=== PATIENT | female | born 1990 | race Caucasian/White ===

== ENCOUNTER 2017-06-15 05:46 | Emergency (ER) | payer SELFPAY ==
[~2017-06-15] VITALS: Ht 160 cm; Wt 115.2 kg
--- NOTE | 2017-06-15 06:34 | PHYS DOC ---
Past Medical History Past Medical History: No Pertinent History Past Medical History Past Surgical History: No Surgical History Alcohol Use: None Drug Use: None Adult General Chief Complaint Chief Complaint: ABDOMINAL PAIN IN HPI HPI Patient is a 27 year old female with /vaginal bleeding. This is a 27-year-old female with LMP between March and April presents with vaginal bleeding. She has had positive test at home. She's been having some cramping, last ast night. This morning she woke and had a small amount of bright red blood coming out of her vagina. She's not having the pain right now. She did have a stillbirth previously. No recent sexual activity. No pain currently. No active bleeding currently she says. She's not having current pain. She is not seen [facility] [employer] for this . She has had multiple positive tests at home. Review of Systems Review of Systems Constitutional: Denies fever or chills Eyes: Denies change in visual acuity, redness, or eye pain HENT: Denies nasal congestion or sore throat Respiratory: Denies cough or shortness of breath Cardiovascular: No additional information not addressed in HPI GI: Denies abdominal pain, nausea, vomiting, bloody stools or diarrhea : Denies dysuria or hematuria Musculoskeletal: Denies back pain or joint pain Integument: Denies rash or skin lesions Neurologic: Denies headache, focal weakness or sensory changes Endocrine: Denies polyuria or polydipsia All other systems were reviewed and found to be within normal limits, except as documented in this note. Allergies Allergies Allergies Coded Allergies Type Severity Reaction Last Updated Verified No Known Drug Allergies 06/15/17 No Physical Exam Physical Exam Constitutional: Well developed, well nourished, no acute distress, non-toxic appearance. HENT: Normocephalic, atraumatic, Eyes: conjunctiva normal Neck: Normal range of motion Cardiovascular:Heart rate regular rhythm, no murmur Lungs & Thorax: Bilateral breath sounds clear to auscultation Abdomen: Bowel sounds normal, soft, no tenderness, no masses, no pulsatile masses. PELVIC: scant amount of blood in the vaginal vault, os is minimally open. No active vaginal bleeding. No POC. No adnexal tenderness. Skin: Warm, dry, no erythema, no rash. Back: No tenderness, no CVA tenderness. Extremities: No tenderness, no cyanosis, no clubbing, ROM intact, no edema. Neurologic: Alert and oriented X 3, normal motor function, normal sensory function, no focal deficits noted. Psychologic: Affect normal, judgement normal, mood normal. Current Patient Data Vital Signs Vital Signs Date Time Temp Pulse Resp B/P (MAP) Pulse Ox O2 Delivery O2 Flow Rate FiO2 06/15/17 06:35 64 111/58 (75) 98 Room Air 06/15/17 06:01 98.0 18 98.0 Lab Values Laboratory Tests Test 06/15/17 05:35 06/15/17 05:58 06/15/17 06:30 Urine Collection Type Unknown Urine Color Yellow Urine Clarity Clear Urine pH 6.0 Urine Specific [place] 1.020 Urine Protein Negative mg/dL (NEG-TRACE) Urine Glucose (UA) Negative mg/dL (NEG) Urine Ketones (Stick) Negative mg/dL (NEG) Urine Blood Large (NEG) Urine Nitrite Negative (NEG) Urine Bilirubin Negative (NEG) Urine Urobilinogen Dipstick 0.2 mg/dL (0.2 mg/dL) Urine Leukocyte Esterase Trace (NEG) Urine RBC 1-2 /HPF (0-2) Urine WBC 1-4 /HPF (0-4) Urine Squamous Epithelial Cells Many /LPF Urine Bacteria Many /HPF (0-FEW) Urine Mucus Mod /LPF POC Urine HCG, Qualitative Hcg negative (Negative) White Blood Count 8.5 x10^3/uL (4.0-11.0) Red Blood Count 4.54 x10^6/uL (3.50-5.40) Hemoglobin 14.2 g/dL (12.0-15.5) Hematocrit 41.7 % (36.0-47.0) Mean Corpuscular Volume 92 fL (79-100) Mean Corpuscular Hemoglobin 31 pg (25-35) Mean Corpuscular Hemoglobin Concent 34 g/dL (31-37) Red Cell Distribution Width 13.0 % (11.5-14.5) Platelet Count 297 x10^3/uL (140-400) Neutrophils (%) (Auto) 55 % (31-73) Lymphocytes (%) (Auto) 29 % (24-48) Monocytes (%) (Auto) 10 % (0-9) H Eosinophils (%) (Auto) 5 % (0-3) H Basophils (%) (Auto) 1 % (0-3) Neutrophils # (Auto) 4.7 x10^3uL (1.8-7.7) Lymphocytes # (Auto) 2.5 x10^3/uL (1.0-4.8) Monocytes # (Auto) 0.8 x10^3/uL (0.0-1.1) Eosinophils # (Auto) 0.4 x10^3/uL (0.0-0.7) Basophils # (Auto) 0.1 x10^3/uL (0.0-0.2) Maternal Serum HCG Beta Subunit < 1 mIU/mL (0-5) Sodium Level 141 mmol/L (136-145) Potassium Level 3.7 mmol/L (3.5-5.1) Chloride Level 105 mmol/L (98-107) Carbon Dioxide Level 29 mmol/L (21-32) Anion Gap 7 (6-14) Blood Urea Nitrogen 9 mg/dL (7-20) Creatinine 0.9 mg/dL (0.6-1.0) Estimated GFR (Cockcroft-Gault) 75.1 BUN/Creatinine Ratio 10 (6-20) Glucose Level 87 mg/dL (70-99) Calcium Level 8.4 mg/dL (8.5-10.1) L Total Bilirubin 0.3 mg/dL (0.2-1.0) Aspartate Amino Transferase (AST) 17 U/L (15-37) Alanine Aminotransferase (ALT) 29 U/L (14-59) Alkaline Phosphatase 63 U/L (46-116) Total Protein 7.2 g/dL (6.4-8.2) Albumin 3.4 g/dL (3.4-5.0) Albumin/Globulin Ratio 0.9 (1.0-1.7) L Laboratory Tests 06/15/17 06:30 Laboratory Tests 06/15/17 06:30 EKG EKG [] Radiology/Procedures Radiology/Procedures Ultrasound OB less than 14 weeks with transvaginal Clinical indication: Vaginal bleeding in early . Negative urine test. Comparison: None. Findings: Dual thickness endometrium is 8 mm in thickness. Right ovary measures 2.7 x 1.7 x 2.6 cm with normal color Doppler imaging. Uterus measures 8.1 x 5.3 x 3.7 cm. Left ovary is not seen on the transvaginal images and seen transabdominally measuring 3.1 x 1.3 x 2.4 cm. No significant pelvic free fluid. Impression: No evidence of intrauterine gestational sac. Findings may be due to early dates. Clinical correlation and serial beta hCGs recommended. DICTATED and SIGNED BY: NORA ORELLANA MD DATE: 06/15/17 0810 CC: NEEL ACOSTA MD; NO PCP ~ [] Course & Med Decision Making Course & Med Decision Making Pertinent Labs and Imaging studies reviewed. (See chart for details) Patient is not . Rh is positive. Sono is negative. Thus the diagnosis is vaginal bleeding. Results discussed with patient. Clear return warnings given. Will return for any worsening symptoms. GC/ chlamydia swabs pending; will ask that she call back in 4-5 days for these. Dx: vaginal bleeding. Dragon Disclaimer Dragon Disclaimer This electronic medical record was generated, in whole or in part, using a voice recognition dictation system. NEEL ACOSTA MD Jun 15, 2017 06:34
[2017-06-15 06:35] LABS: BILIRUBIN,URINE NEGATIVE (NEG); GLUCOSE,URINE NEGATIVE (NEG); NITRITE,URINE NEGATIVE (NEG); PROTEIN,URINE NEGATIVE (NEG-TRACE); UROBILINOGEN,URINE 0.2 mg/dL (0.2 mg/dL)
[2017-06-15 06:48] LABS: BASO # 0.1 x10^3/uL (0.0-0.2); BASO % 1 % (0-3); EOS % 5 % (0-3); HEMATOCRIT 41.7 % (36.0-47.0); HEMOGLOBIN 14.2 g/dL (12.0-15.5); LYMPH # 2.5 x10^3/uL (1.0-4.8); LYMPH % 29 % (24-48); MEAN CORPUSCULAR HEMOGLOBIN 31 pg (25-35); MEAN CORPUSCULAR HGB CONC 34 g/dL (31-37); MEAN CORPUSCULAR VOLUME 92 fL (79-100); MONO % 10 % (0-9); NEUT % 55 % (31-73); PLATELET COUNT 297 x10^3/uL (140-400); RED BLOOD COUNT 4.54 x10^6/uL (3.50-5.40); WHITE BLOOD COUNT 8.5 x10^3/uL (4.0-11.0)
[2017-06-15 06:51] LABS: SQUAMOUS EPITHELIAL CELL,UR MANY /LPF
[2017-06-15 06:52] LABS: BACTERIA,URINE MANY /HPF (0-FEW)
[2017-06-15 06:53] LABS: CALCIUM 8.4 mg/dL (8.5-10.1); CREATININE 0.9 mg/dL (0.6-1.0); GFR 75.1; POTASSIUM 3.7 mmol/L (3.5-5.1)
[2017-06-15 06:59] LABS: ALBUMIN 3.4 g/dL (3.4-5.0); ALBUMIN/GLOBULIN RATIO 0.9 (1.0-1.7); TOTAL BILIRUBIN 0.3 mg/dL (0.2-1.0); TOTAL PROTEIN 7.2 g/dL (6.4-8.2)
--- NOTE | 2017-06-15 08:18 | RAD ---
Ultrasound OB less than 14 weeks with transvaginal Clinical indication: Vaginal bleeding in early . Negative urine test. Comparison: None. Findings: Dual thickness endometrium is 8 mm in thickness. Right ovary measures 2.7 x 1.7 x 2.6 cm with normal color Doppler imaging. Uterus measures 8.1 x 5.3 x 3.7 cm. Left ovary is not seen on the transvaginal images and seen transabdominally measuring 3.1 x 1.3 x 2.4 cm. No significant pelvic free fluid. Impression: No evidence of intrauterine gestational sac. Findings may be due to early dates. Clinical correlation and serial beta hCGs recommended.
[2017-06-15 08:30] VITALS: BP 121/78
== END 2017-06-15 09:00 | disposition home or self-care (01) ==
LOC: ER 05:46
DX: O20.9 Hemorrhage in early pregnancy, unspecified (principal); O26.891 Other specified pregnancy related conditions, first trimester; R10.9 Unspecified abdominal pain; Z3A.00 Weeks of gestation of pregnancy not specified
CPT/HCPCS: 36415; 76801; 76817; 80053; 81001; 81025; 84702; 85025; 86900; 86901; 87086; 87491; 87591; 99285-25

== ENCOUNTER 2017-10-17 12:33 | Emergency (ER) | payer SELFPAY ==
[2017-10-17] MEDS: IPRATRPIUM/ALBUTEROL 0.5/2.5MG 3 ML NEBU. NEB (13:21)
[2017-10-17] MEDS: predniSONE 10 MG TABLET PO (13:30)
[2017-10-17] MEDS: ALBUTEROL SULFATE 2.5 MG/3 ML NEBU. NEB (14:09)
== END 2017-10-17 14:35 | disposition home or self-care (01) ==
LOC: ER 14:35
DX: J45.901 Unspecified asthma with (acute) exacerbation (principal)
CPT/HCPCS: 94640; 99284-25; J7512; J7613; J7620

== ENCOUNTER 2018-01-04 20:26 | Emergency (ER) | payer SELFPAY ==
[2018-01-04 21:07] LABS: BILIRUBIN,URINE NEGATIVE (NEG); CLARITY,URINE CLOUDY; COLOR,URINE YELLOW; GLUCOSE,URINE NEGATIVE (NEG); NITRITE,URINE NEGATIVE (NEG); PROTEIN,URINE NEGATIVE (NEG-TRACE)
[2018-01-04 21:08] LABS: URINE HCG POC HCG NEGATIVE (Negative)
[2018-01-04] MEDS: cefTRIAXone IM 250 MG VIAL IM (21:14)
[2018-01-04] MEDS: metroNIDAZOLE 500 MG TABLET PO (21:14)
[2018-01-04] MEDS: AZITHROMYCIN 250 MG TABLET. PO (21:14)
[2018-01-04 21:16] LABS: BACTERIA,URINE MODERATE /HPF (0-FEW); RBC,URINE 0 /HPF (0-2); SQUAMOUS EPITHELIAL CELL,UR MANY /LPF; WBC,URINE >40 /HPF (0-4)
== END 2018-01-04 21:30 | disposition home or self-care (01) ==
LOC: ER 21:30
DX: Z20.2 Contact with and (suspected) exposure to infections with a predominantly sexual mode of transmission (principal); B99.9 Unspecified infectious disease; H10.89 Other conjunctivitis
CPT/HCPCS: 81001; 81025; 87086; 87491; 87591; 96372; 99284; J0696; Q0144